=== PATIENT | female | born 1930 | race Hispanic/Latino ===

== ENCOUNTER 2019-12-09 16:36 | Emergency (ER) | payer OTHER ==
--- NOTE | 2019-12-09 17:38 | RAD REPORT ---
EXAM DESCRIPTION: CT - CTHCSPWOC - 12/09/2019 5:18 pm CLINICAL HISTORY: Trauma, head and neck injury. Fall injury, headache COMPARISON: <Comparisons> TECHNIQUE: Axial 5 mm thick images of the head were obtained. Axial 2 mm thick images of the cervical spine were obtained with sagittal and coronal reconstruction images generated and reviewed. All CT scans are performed using dose optimization technique as appropriate and may include automated exposure control or mA/KV adjustment according to patient size. FINDINGS: CT HEAD WITHOUT CONTRAST: No acute hemorrhage, hydrocephalus or extra-axial collection is identified.Mild generalized brain atr ophy is present with mild periventricular and deep white matter chronic microvascular ischemic change s.No areas of brain edema or midline shift. The paranasal sinuses and mastoids are clear.The calvarium is intact. CT CERVICAL SPINE WITHOUT CONTRAST: No fracture or subluxation.Mild mid and lower cervical degenerative changes are present.No prevertebr al soft tissues swelling is identified. IMPRESSION: No acute intracranial or cervical spine findings. Mild mid and lower cervical degenerative changes.
--- NOTE | 2019-12-09 17:47 | RAD REPORT ---
EXAM DESCRIPTION: RAD - Hip Right 2 View - 12/09/2019 5:38 pm CLINICAL HISTORY: PAIN COMPARISON: No comparisons FINDINGS: Intramedullary manny is seen within the femur. No hardware complication evident. No acute fr acture evident. Vascular calcification noted. Small knee joint effusion evident.
--- NOTE | 2019-12-09 17:47 | RAD REPORT ---
EXAM DESCRIPTION: RAD - Chest Single View - 12/09/2019 5:39 pm CLINICAL HISTORY: possible syncope Chest pain. COMPARISON: No comparisons FINDINGS: Portable technique limits examination quality. The lungs are grossly clear. Patient's chin obscures the lung apices medially. The heart is mildly en larged. Degenerative changes are present in both shoulders. IMPRESSION: No acute intrathoracic process suspected.
[2019-12-09] MEDS ORDERED: TETANUS & DIPHTHERIA TOX,ADULT 0.5 ML VIAL ONE (17:53)
[2019-12-09 18:13] LABS: Absolute Lymphocytes (CBC) 1.9 K/uL (0.7-4.9); Basophils % 0.1 % (0-1.3); Hematocrit 36.8 % (36.0-45.0); Lymphocytes % 32.7 % (15.3-44.8); MPV 8.5 fL (7.6-11.3); RBC Red Blood Cell Count 3.97 M/uL (3.86-4.86)
[2019-12-09 18:18] LABS: Protime INR 1.06
[2019-12-09 18:35] LABS: ALT/SGPT 24 U/L (12-78); AST/SGOT 26 U/L (15-37); Albumin 3.9 g/dL (3.4-5.0); Alkaline Phosphatase 68 U/L (45-117); BUN Blood Urea Nitrogen 14 mg/dL (7-18); Bicarbonate 26 mmol/L (21-32); Bilirubin Direct 0.2 mg/dL (0-0.2); Bilirubin Total 0.4 mg/dL (0.2-1.0); Glucose Level 87 mg/dL (74-106); Magnesium 2.4 mg/dL (1.8-2.4); NT PRO-BNP 956 pg/mL (<450); Sodium Level 144 mmol/L (136-145); Troponin (Emerg Dept Use Only) < 0.02 ng/mL (0.0-0.045)
--- NOTE | 2019-12-09 18:51 | EDPHYS ---
Physician Documentation [facility] Name: Alice Carrera Age: 89 yrs Sex: Female : 1930 Arrival Date: 12/09/2019 Time: 16:46 Bed 17 Private MD: ED Physician Gilmar Fritz HPI: 12/09 17:00 This 89 yrs old Female presents to ER via EMS with complaints of Fall Injury. pm1 17:00 Details of fall: The patient fell from an upright position, while standing, and struck pm1 a tile surface. Onset: The symptoms/episode began/occurred just prior to arrival. Associated injuries: The patient sustained injury to the head, laceration, right hip, pain. Patient was walking into the restroom at [employer]. She closed and locked the door and then fell backwards. Patient denies LOC and neck pain. Complaining of headache to area of laceration to the back of her head and right hip pain. No chest pain, shortness of breath or any chest pain equivalents. Historical: - Allergies: 16:35 No Known Allergies; rb1 - Home Meds: 16:35 alendronate oral oral once wkly [Active]; meloxicam oral oral once daily [Active]; rb1 donepezil oral oral once daily [Active]; Famotidine Oral once daily [Active]; rosuvastatin oral oral once daily [Active]; - PMHx: 16:35 Falls; rb1 - PSHx: 16:35 right hip; rb1 - Immunization history:: Adult Immunizations up to date. - Social history:: Smoking status: Patient/guardian denies using tobacco. - Immunization history: Last tetanus immunization: unknown. - Ebola Screening: : Patient negative for fever greater than or equal to 101.5 degrees Fahrenheit, and additional compatible Ebola Virus Disease symptoms. ROS: 17:00 Constitutional: Negative for fever, chills, and weight loss, Eyes: Negative for injury, pm1 pain, redness, and discharge, ENT: Negative for injury, pain, and discharge, Neck: Negative for injury, pain, and swelling, Cardiovascular: Negative for chest pain, palpitations, and edema, Respiratory: Negative for shortness of breath, cough, wheezing, and pleuritic chest pain, Abdomen/GI: Negative for abdominal pain, nausea, vomiting, diarrhea, and constipation, Back: Negative for injury and pain. 17:00 MS/extremity: Positive for pain, of the right hip, Negative for decreased range of motion, deformity. 17:00 Skin: Positive for laceration(s), of the scalp. 17:00 Neuro: Positive for headache, Negative for dizziness, numbness, tingling, weakness. Exam: 17:00 Constitutional: This is a well developed, well nourished patient who is awake, alert, pm1 and in no acute distress. 17:00 Eyes: Pupils equal round and reactive to light, extra-ocular motions intact. Lids and lashes normal. Conjunctiva and sclera are non-icteric and not injected. Cornea within normal limits. Periorbital areas with no swelling, redness, or edema. ENT: Nares patent. No nasal discharge, no septal abnormalities noted. Tympanic membranes are normal and external auditory canals are clear. Oropharynx with no redness, swelling, or masses, exudates, or evidence of obstruction, uvula midline. Mucous membranes moist. Neck: Trachea midline, no thyromegaly or masses palpated, and no cervical lymphadenopathy. Supple, full range of motion without nuchal rigidity, or vertebral point tenderness. No Meningismus. Chest/axilla: Normal chest wall appearance and motion. Nontender with no deformity. No lesions are appreciated. Cardiovascular: Regular rate and rhythm with a normal S1 and S2. No gallops, murmurs, or rubs. Normal PMI, no JVD. No pulse deficits. Respiratory: Lungs have equal breath sounds bilaterally, clear to auscultation and percussion. No rales, rhonchi or wheezes noted. No increased work of breathing, no retractions or nasal flaring. Abdomen/GI: Soft, non-tender, with normal bowel sounds. No distension or tympany. No guarding or rebound. No evidence of tenderness throughout. Back: No spinal tenderness. No costovertebral tenderness. Full range of motion. Skin: Warm, dry with normal turgor. Normal color with no rashes, no lesions, and no evidence of cellulitis. 17:00 Head/face: Noted is no obvious of injury or deformity except a laceration(s), that is linear, 2 cm(s), of the scalp. 17:00 Musculoskeletal/extremity: Extremities: grossly normal except: noted in the tenderness of right hip: passive range of motion intact, Circulation is intact in all extremities. 17:00 Neuro: Orientation: is normal, Motor: is normal, moves all fours, Sensation: is normal, no obvious gross deficits. Vital Signs: 16:35 BP 148 / 72; Pulse 80; Resp 17; Temp 98.1(O); Pulse Ox 100% on R/A; Weight 58.06 kg rb1 (R); Height 5 ft. 0 in. (152.40 cm) (R); Pain 8/10; 17:30 BP 137 / 72; Pulse 87; Resp 16; Pulse Ox 100% on R/A; rb1 18:30 BP 162 / 68; Pulse 73; Resp 15; Pulse Ox 100% on R/A; Pain 8/10; rb1 19:38 BP 151 / 96; Pulse 92; Resp 18; Pulse Ox 100% on R/A; wh 16:35 Body Mass Index 25.00 (58.06 kg, 152.40 cm) rb1 Giselle Coma Score: 16:35 Eye Response: spontaneous(4). Verbal Response: oriented(5). Motor Response: obeys rb1 commands(6). Total: 15. Trauma Score (Adult): 16:35 Eye Response: spontaneous(1); Verbal Response: oriented(1); Motor Response: obeys rb1 commands(2); Systolic BP: > 89 mm Hg(4); Respiratory Rate: 10 to 29 per min(4); Giselle Score: 15; Trauma Score: 12 Laceration: 17:50 Wound Repair of 1.5cm ( 0.6in ) subcutaneous laceration to occipital area. Linear pm1 shaped.. Distal neuro/vascular/tendon intact. Wound prep: Extensive cleansing with hibiclenz by technical maintenance technician, Wound irrigation with saline by technical maintenance technician, Wound explored extensively, Copious irrigation. Skin closed with 3 1-0 [place] using staple gun. Patient tolerated well. MDM: 16:47 Patient medically screened. pm1 18:49 Data reviewed: vital signs. Data interpreted: Pulse oximetry: on room air is 100 %. pm1 Interpretation: normal. Counseling: I had a detailed discussion with the patient and/or guardian regarding: the historical points, exam findings, and any diagnostic results supporting the discharge/admit diagnosis, lab results, radiology results, the need for outpatient follow up, to return to the emergency department if symptoms worsen or persist or if there are any questions or concerns that arise at home. 12/09 16:59 Order name: Basic Metabolic Panel; Complete Time: 18:35 pm1 12/09 16:59 Order name: CBC with Diff; Complete Time: 18:21 pm1 12/09 16:59 Order name: LFT's; Complete Time: 18:35 pm1 12/09 16:59 Order name: Magnesium; Complete Time: 18:35 pm1 12/09 16:59 Order name: NT PRO-BNP; Complete Time: 18:35 pm1 12/09 16:59 Order name: PT-INR; Complete Time: 18:30 pm1 12/09 16:58 Order name: CT Head C Spine; Complete Time: 17:50 pm1 12/09 16:58 Order name: Hip Right 2 View XRAY; Complete Time: 17:50 pm1 12/09 16:59 Order name: Troponin (emerg Dept Use Only); Complete Time: 18:35 pm1 12/09 16:59 Order name: XRAY Chest (1 view); Complete Time: 17:50 pm1 12/09 16:59 Order name: EKG; Complete Time: 17:01 pm1 12/09 16:59 Order name: Cardiac monitoring; Complete Time: 17:59 pm1 12/09 16:59 Order name: EKG - Nurse/Tech; Complete Time: 17:59 pm1 12/09 16:59 Order name: IV Saline Lock; Complete Time: 18:18 pm1 12/09 16:59 Order name: Labs collected and sent; Complete Time: 18:18 pm1 12/09 16:59 Order name: O2 Per Protocol; Complete Time: 17:59 pm1 12/09 16:59 Order name: O2 Sat Monitoring; Complete Time: 17:59 pm1 EC:58 Rate is 76 beats/min. Rhythm is regular, Normal Sinus Rhythm with No ectopy. No Q pm1 waves. T waves are Normal. No ST changes noted. Clinical impression: Normal ECG. Administered Medications: 17:55 Drug: Tetanus-Diphtheria Toxoid Adult 0.5 ml {Service Tech/Welder: OMG. Exp: rb1 10/26/2021. Lot #: [id number]. } Route: IM; Site: right deltoid; 18:10 Follow up: Response: No adverse reaction rb1 19:30 Drug: traMADol 50 mg Route: PO; 19:34 Follow up: Response: No adverse reaction; Pain is decreased; RASS: Alert and Calm (0) 19:34 Not Given (Patient Refused): morphine 2 mg IVP once; RASS on ADMIN: Combtv4, Very wh Agttd3, Agttd2, Rstlss1, AlertClm0, Drwsy-1, Lt Sdtn-2, Mod Sdtn-3, Dp Sdtn-4, UnArsble-5 19:34 Not Given (Patient Refused; MPOA Refused ): Zofran 4 mg IVP once; over 2 minutes Disposition: 12/10 07:05 Co-signature as Attending Physician, Gilmar Fritz MD. rn Disposition: 12/09/19 18:50 Discharged to Home. Impression: Fall on same level from slipping, tripping and stumbling, Laceration without foreign body of other part of head, Pain in right hip - contusion. - Condition is Stable. - Discharge Instructions: Contusion, Fall Prevention in the Home, Laceration Care, Adult, Hip Pain. - Prescriptions for Ultracet 37.5- 325 mg Oral Tablet - take 1 tablet by ORAL route every 6 hours - for up to 5 days; do not exceed 8 tablets per day.; 20 tablet. - Medication Reconciliation Form, Thank You Letter, Antibiotic Education, Prescription Opioid Use form. - Follow up: Emergency Department; When: As needed; Reason: Worsening of condition. Follow up: Private Physician; When: 2 - 3 days; Reason: Recheck today's complaints, Continuance of care, Re-evaluation by your physician. - Problem is new. - Symptoms have improved. Signatures: Dispatcher [employer] EDMS Gilmar Fritz MD MD rn Barber, Rebecca RN RN Andrew Ayala, ROBYN WELLNESS INSTRUCTOR pm1 Brea Dubois Corrections: (The following items were deleted from the chart) 12/09 19:38 18:50 12/09/2019 18:50 Discharged to Home. Impression: Fall on same level from slipping, tripping and stumbling; Laceration without foreign body of other part of head; Pain in right hip - contusion. Condition is Stable. Forms are Medication Reconciliation Form, Thank You Letter, Antibiotic Education, Prescription Opioid Use. Follow up: Emergency Department; When: As needed; Reason: Worsening of condition. Follow up: Private Physician; When: 2 - 3 days; Reason: Recheck today's complaints, Continuance of care, Re-evaluation by your physician. Problem is new. Symptoms have improved. pm1
--- NOTE | 2019-12-09 18:51 | ER ---
Nurse's Notes [facility] Name: Alice Carrera Age: 89 yrs Sex: Female : 1930 Arrival Date: 12/09/2019 Time: 16:46 Bed 17 Private MD: Diagnosis: Fall on same level from slipping, tripping and stumbling;Laceration without foreign body of other part of head;Pain in right hip-contusion Presentation: 12/09 16:35 Presenting complaint: EMS states: Pt. was at [facility] and fell in the bathroom. rb1 Hit her head and has a small laceration on the back of her head. Denies LOC. C/o right hip pain, had previous right hip fracture repaired. A \\T\\ O x 4, GCS 15. BP 130/76, P 80's. Care prior to arrival: None. Mechanism of Injury: Fall from standing position. 16:35 Acuity: JERARDO 3 rb1 16:35 Method Of Arrival: EMS: [facility] 16:35 Transition of care: patient was not received from another setting of care. Onset of rb1 symptoms was December 09, 2019 at 16:00. Risk Assessment: Do you want to hurt yourself or someone else? Patient reports no desire to harm self or others. Initial Sepsis Screen: Does the patient meet any 2 criteria? No. Patient's initial sepsis screen is negative. Does the patient have a suspected source of infection? No. Patient's initial sepsis screen is negative. Historical: - Allergies: 16:35 No Known Allergies; rb1 - Home Meds: 16:35 alendronate oral oral once wkly [Active]; meloxicam oral oral once daily [Active]; rb1 donepezil oral oral once daily [Active]; Famotidine Oral once daily [Active]; rosuvastatin oral oral once daily [Active]; - PMHx: 16:35 Falls; rb1 - PSHx: 16:35 right hip; rb1 - Immunization history:: Adult Immunizations up to date. - Social history:: Smoking status: Patient/guardian denies using tobacco. - Immunization history: Last tetanus immunization: unknown. - Ebola Screening: : Patient negative for fever greater than or equal to 101.5 degrees Fahrenheit, and additional compatible Ebola Virus Disease symptoms. Screenin:35 Abuse screen: Denies threats or abuse. Tuberculosis screening: No symptoms or risk rb1 factors identified. 16:35 Nutritional screening: No deficits noted. rb1 17:30 Fall Risk Fall in past 12 months (25 points). Secondary diagnosis (15 points) impaired rb1 mobility, IV access (20 points). Ambulatory Aid- None/Bed Rest/Nurse Assist (0 pts). Gait- Impaired (20 pts.). Mental Status- Oriented to own ability (0 pts). Total Silva Fall Scale indicates High Risk Score (45 or more points). Fall prevention measures have been instituted. Side Rails Up X 2 Placed Close to Nursing Station 1:1 Attendant Assigned Frequent Obs/Assessments Occuring Family Present and informed to notify staff if the need to leave the bedside As available patient and family educated on Fall Prevention Program and Strategies. Primary Survey: 16:35 NO uncontrolled hemorrhage observed. A: The patient is alert. Airway: patent. rb1 Breathing/Chest: Respiratory pattern: regular, Respiratory effort: spontaneous, unlabored, Chest inspection: symmetrical rise and fall of the chest. Circulation: Skin color: pink, Skin temperature: warm, dry. Disability Alert. Exposure/Environment: Obvious injury(ies) are noted at this time: laceration to the back of her head. 17:02 Reassessment Airway Airway Patent Breathing/Chest Respiratory pattern Regular rb1 Respiratory effort Spontaneous Unlabored Chest inspection Symmetrical Circulation Color [place] Temperature Warm Dry Disability Alert. Secondary Survey: 16:35 HEENT: Head Other laceration. Gastrointestinal: No deficits noted. : No deficits rb1 noted. Musculoskeletal: Range of motion: limited in right leg. Assessment: 16:35 General: Appears uncomfortable, Behavior is calm, cooperative. Pain: Complains of pain rb1 in right leg and right hip Pain currently is 8 out of 10 on a pain scale. Aggravated by repositioning. Neuro: Level of Consciousness is awake, alert, obeys commands, Oriented to person, place, time, situation. Cardiovascular: Capillary refill < 3 seconds is brisk in bilateral fingers. Respiratory: Airway is patent Respiratory effort is even, unlabored, Respiratory pattern is regular, symmetrical. GI: No signs and/or symptoms were reported involving the gastrointestinal system. : No signs and/or symptoms were reported regarding the genitourinary system. Derm: Skin is pink, warm \\T\\ dry. Laceration noted to the back of head. Bleeding controlled. Musculoskeletal: Range of motion: limited in right leg. 16:35 Reassessment: Trauma Alert not activated per Andrew Harrington NP. rb1 17:10 Reassessment: Pt. went to CT. rb1 17:30 Reassessment: Patient appears in no apparent distress at this time. Patient and/or rb1 family updated on plan of care and expected duration. Pain level reassessed. Patient is alert, oriented x 3, equal unlabored respirations, skin warm/dry/pink. Daughter is at the bedside. 17:55 Reassessment: Spoke to Marcel, pt. son, via telephone regarding the Tetanus shot. He rb1 stated, "I'm not sure when she had one last." I explained that if she received the shot that it would not harm her if she had it in the past 5-10 years. Marcel stated, "Go ahead and give it to her because I'm not sure when she received her last one.". 18:30 Reassessment: Patient appears in no apparent distress at this time. No changes from rb1 previously documented assessment. 18:39 Reassessment: Pt. requested pain medication, provider is currently in another pt. room. rb1 Vital Signs: 16:35 BP 148 / 72; Pulse 80; Resp 17; Temp 98.1(O); Pulse Ox 100% on R/A; Weight 58.06 kg rb1 (R); Height 5 ft. 0 in. (152.40 cm) (R); Pain 8/10; 17:30 BP 137 / 72; Pulse 87; Resp 16; Pulse Ox 100% on R/A; rb1 18:30 BP 162 / 68; Pulse 73; Resp 15; Pulse Ox 100% on R/A; Pain 8/10; rb1 19:38 BP 151 / 96; Pulse 92; Resp 18; Pulse Ox 100% on R/A; wh 16:35 Body Mass Index 25.00 (58.06 kg, 152.40 cm) rb1 Giselle Coma Score: 16:35 Eye Response: spontaneous(4). Verbal Response: oriented(5). Motor Response: obeys rb1 commands(6). Total: 15. Trauma Score (Adult): 16:35 Eye Response: spontaneous(1); Verbal Response: oriented(1); Motor Response: obeys rb1 commands(2); Systolic BP: > 89 mm Hg(4); Respiratory Rate: 10 to 29 per min(4); Hunt Score: 15; Trauma Score: 12 ED Course: 16:35 Patient has correct armband on for positive identification. Bed in low position. Call rb1 light in reach. Side rails up X2. 16:35 Arm band placed on left wrist. rb1 16:35 Patient maintains SpO2 saturation greater than 95% on room air. rb1 16:35 Thermoregulation: warm blanket given to patient. rb1 16:46 Patient arrived in ED. rb1 16:47 Andrew Harrington, ROBYN is PHCP. pm1 16:47 Gilmar Fritz MD is Attending Physician. pm1 16:50 Triage completed. rb1 17:14 Melissa Walker, RN is Primary Nurse. rb1 17:18 CT completed. Patient tolerated procedure well. Patient moved back from CT. mw3 17:18 CT Head C Spine In Process Unspecified. EDMS 17:35 Inserted saline lock: 22 gauge in right antecubital area, using aseptic technique. kj1 Blood collected. 17:38 Hip Right 2 View XRAY In Process Unspecified. EDMS 17:38 XRAY Chest (1 view) In Process Unspecified. EDMS 18:16 Initial lab(s) drawn, by me, sent to lab. kj1 19:36 No provider procedures requiring assistance completed. IV discontinued, intact, wh bleeding controlled, No redness/swelling at site. Administered Medications: 17:55 Drug: Tetanus-Diphtheria Toxoid Adult 0.5 ml {Chief Inspector: Obeo. Exp: rb1 10/26/2021. Lot #: [id number]. } Route: IM; Site: right deltoid; 18:10 Follow up: Response: No adverse reaction rb1 19:30 Drug: traMADol 50 mg Route: PO; wh 19:34 Follow up: Response: No adverse reaction; Pain is decreased; RASS: Alert and Calm (0) 19:34 Not Given (Patient Refused): morphine 2 mg IVP once; RASS on ADMIN: Combtv4, Very wh Agttd3, Agttd2, Rstlss1, AlertClm0, Drwsy-1, Lt Sdtn-2, Mod Sdtn-3, Dp Sdtn-4, UnArsble-5 19:34 Not Given (Patient Refused; MPOA Refused ): Zofran 4 mg IVP once; over 2 minutes Intake: 19:37 PO: 60ml (Water); Total: 60ml. Outcome: 18:50 Discharge ordered by . pm1 19:36 Patient's length of stay was not longer than 2 hours. 19:36 Discharged to home via wheelchair, with family. 19:36 Condition: stable 19:36 Discharge instructions given to patient, family, Instructed on discharge instructions, follow up and referral plans. medication usage, wound care, POC Demonstrated understanding of instructions, follow-up care, medications, wound care, POC Prescriptions given X 1. 19:38 Patient left the ED. Signatures: Dispatcher [employer] EDMS Melissa Walker RN RN rb1 Andrew Harrington, TUBE CUTTER OPERATOR TUBE CUTTER OPERATOR pm1 Brea Dubois Michelle mw3 Jennifer Manzo kj1 Corrections: (The following items were deleted from the chart) 17:13 16:35 Reassessment: Trauma Alert not activated per Andrew Harrington. rb1 rb1
[2019-12-09] MEDS ORDERED: MORPHINE 2 MG/ML SYR ONE (19:03)
[2019-12-09] MEDS ORDERED: ONDANSETRON 4 MG/2 ML VIAL ONE (19:03)
[2019-12-09] MEDS ORDERED: TRAMADOL HCL 50 MG TAB ONE (19:27)
[2019-12-09 19:52] VITALS: O2SAT 100
[2019-12-09 19:55] VITALS: BP 151/96
--- NOTE | 2019-12-10 10:24 | EKG ---
Test Date: 2019-12-09 Test Time: 17:52:39 Cement Mason Maintenance: TOMAS MEASUREMENT RESULTS: Intervals: Rate: 76 OR: 118 QRSD: 82 QT: 378 QTc: 425 [place]: P: 51 OR: 118 QRS: 56 T: 45 INTERPRETIVE STATEMENTS: Normal sinus rhythm Normal ECG No previous ECG available for comparison Electronically Signed On 12-10-19 10:24:01 RESIDENCE COUNSELOR by Christian Landaverde
== END 2019-12-09 19:38 | disposition home or self-care (01) ==
LOC: ER 16:36
PROC: 0JQ00ZZ Repair Scalp Subcutaneous Tissue and Fascia, Open Approach (ICD-10-PCS; principal; 2019-12-09)
DX: S01.01XA Laceration without foreign body of scalp, initial encounter (principal); S70.01XA Contusion of right hip, initial encounter; M54.2 Cervicalgia; R51 Headache; W01.0XXA Fall on same level from slipping, tripping and stumbling without subsequent striking against object, initial encounter; Y93.01 Activity, walking, marching and hiking; Y92.512 Supermarket, store or market as the place of occurrence of the external cause; Z23 Encounter for immunization
CPT/HCPCS: 36415; 70450; 71045; 72125; 80048; 80076; 83735; 83880; 84484; 85025; 85610; 90471; 90714; 93005; 99285; J2270; J2405